=== PATIENT | male | born 1995 ===

== ENCOUNTER 2017-11-15 13:34 | Observation (INO) ==
--- NOTE | 2017-11-15 14:57 | General Surg History&Physical ---
<Peace Delgado - Last Filed: 11/15/17 15:29> Date of Encounter: 11/15/17 Time of Encounter: 15:05 Assessment and Plan (1) Acute appendicitis Current Visit: Yes Status: Acute The assessment and plan as outlined above was discussed with the patient and/or family members who expressed understanding and agreement. All questions were answered. Imaging per review of [facility] to attending surgeon, and exam is consistent with acute appendicitis. We will plan for surgical intervention in the next 24-48 hours. Recommendations, risks, and benefits have been reviewed with the patient and he is agreeable to proceed. A signed consent is placed on the hard chart. Per record review at [facility], he did not have antibiotics administered during his admission there. He did complete laboratory studies which noted a white blood cell count at 17, without bandemia, normal hemoglobin, unremarkable be MP , unremarkable LFT and mildly elevated bilirubin at 1.8. His CT is reviewed and notes with contrast 1 cm caliber dilated appendix suspicious for acute appendicitis, there is no free air or free fluid noted. NPO IVF ATBX (mefoxin) supportive care and discomfort management GI and DVT prophylaxis IS EPCDs Qualifiers: Acute appendicitis type: unspecified acute appendicitis type Qualified Code (s): K35.80 - Unspecified acute appendicitis (2) ETOH abuse Current Visit: Yes Status: Acute The assessment and plan as outlined above was discussed with the patient and/or family members who expressed understanding and agreement. All questions were answered. CIWA protocols (3) Smoking history Current Visit: Yes Status: Acute The assessment and plan as outlined above was discussed with the patient and/or family members who expressed understanding and agreement. All questions were answered. Scheduled duonebs now in pre-op incentive spirometry scheduled duonebs postoperative encourage smoking cessation History of Present Illness Chief complaint: RLQ pain HPI: Mr. SHAH is a 22 year old male who presented to [facility] with complaints of RLQ pain. He was noted to have acute appendicitis per CT and patient did not want to remain at [facility]. He is transferred to [facility] for plans for laproscopic appendectomy with Dr. Dunbar. He reports no past medical history. He reports a surgical history of right inguinal hernia repair when he was a child. He reports a social history of smoking approximately one pack per day for 3 years and drinks approximately 10 beers per day. He states a history of right lower quadrant pain that has occurred intermittently over the last month but has been constant for the last 24 hours. It started and as stated in the right lower quadrant, is an 8 out of 10, sharp, aggravated by activity or movement or passing on the abdomen, no alleviating factors. He denies fever, chills, nausea, vomiting, urinary symptoms, changes in bowel habits, black, bloody, or tarry stool. Past Med Surg Social Fam HX - Past Medical History Source: patient Medical history: no medical history Psychiatric history: no psych history - Past Surgical History Surgical History: herniorrhaphy - Social History Smoking Status: Current every day smoker Packs per day: One pack per day for 3 years Smokeless Tobacco Status: No Alcohol use: heavy (10 beers daily) Drug use: none Occupational status: employed Current living situation: Home - Independent Activity Level: Independent ambulation Recent Out of Country Travel Within the Last 8 Weeks: No Exposure or Possible Exposure to Illness During Travel: No Review of Systems All systems PM: reviewed and no additional remarkable complaints except as stated All systems PM: The remainder of the systems were reviewed and are negative General Surgery Exam VITAL SIGNS: Reviewed. See [facility] GENERAL: In no apparent distress. HEENT: Normocephalic, atraumatic, pupils are equal and reactive, extraocular motions intact, oropharynx is pink and moist, there is no neck adenopathy or JVD noted. CHEST/RESPIRATORY: The thorax is free from signs of trauma. Lung sounds: clear to auscultation, normal respiratory effort CARDIAC: Regular rate and rhythm. Normal S1 and S2, without murmurs, gallops, or rubs. VASCULAR: No Edema. 2+ peripheral pulses. ABDOMEN: soft, right lower quadrant tenderness, positive McBurney's point, negative obturator, negative so asked, and negative peritoneal MUSCULOSKELETAL: Good range of motion of all major joints. Extremities without clubbing, cyanosis or edema. NEUROLOGIC EXAM: Alert and oriented x 3. Speech normal. Follows commands. PSYCHIATRIC: Mood normal. SKIN: No rash or lesions. Results - Labs All other labs normal. <Candi Dunbar - Last Filed: 11/15/17 16:42> Date of Encounter: 11/15/17 Assessment and Plan (1) Acute appendicitis Current Visit: Yes Status: Acute The assessment and plan as outlined above was discussed with the patient and/or family members who expressed understanding and agreement. All questions were answered. discussed CT report and images with patient he has acute appendicitis, will plan laparoscopic appendectomy, possible open, risks and benefit discussed and he wishes to proceed. npo, ivf hydration prn pain control antibiotics in OR Qualifiers: Acute appendicitis type: unspecified acute appendicitis type Qualified Code (s): K35.80 - Unspecified acute appendicitis (2) ETOH abuse Current Visit: Yes Status: Acute The assessment and plan as outlined above was discussed with the patient and/or family members who expressed understanding and agreement. All questions were answered. (3) Smoking history Current Visit: Yes Status: Acute The assessment and plan as outlined above was discussed with the patient and/or family members who expressed understanding and agreement. All questions were answered. History of Present Illness HPI: Mr. hSah is a 22 year old male with RLQ pain that began early this am. Pain progressed and he presented to [facility] ED. Ct scan was done showing early acute appendicitis. He denies nausea or emesis. Has had some diarrhea today. No fevers ,chills or night sweats. No dysuria. He asked to be transfered to [place] for care. Past Med Surg Social Fam HX - Past Medical History Source: patient Additional medical history: alcohol abuse - Past Surgical History Surgical History: herniorrhaphy (as a child) - Social History Alcohol use: heavy Drug use: none Occupational status: employed Current living situation: Home - Independent Activity Level: Independent ambulation - Family History Grandmother History Unknown: Yes Review of Systems All systems PM: reviewed and no additional remarkable complaints except as stated All systems PM: The remainder of the systems were reviewed and are negative General Surgery Exam Initial Vital Signs Resp Pulse Ox 16 99 11/15/17 15:45 11/15/17 15:45 - Eyes PERRL, normal ocular movement - ENT normal mucosa, normocephalic - Respiratory normal expansion, normal respiratory effort - Cardiovascular Cardiovascular exam: Present: RRR - Abdomen Abdomen general surgery: Present: soft, tender. Absent: tympanic, distended, guarding, rebound Abdominal Tenderness: Present: RLQ - Integumentary Integumentary general surgery: Present: warm and dry, no abnormal pigmentation. Absent: diaphoresis - Neurologic Present: CN 2-12 grossly intact - Musculoskeletal Present: normal posture - Psychiatric Psychiatric general surgery: Present: A&Ox3, speech is normal Results - Labs All other labs normal. - Imaging CT scan - abdomen: report reviewed CT scan - pelvis: report reviewed - Attending Attestation I have personally performed a face to face evaluation on this patient. I have reviewed and agree with the care plan. History and Exam by me shows:
[2017-11-15] MEDS ORDERED: 0.9 % Sodium Chloride 1,000 ML IVC SCH (15:00)
[2017-11-15] MEDS ORDERED: Naloxone 0.4 MG/ML INJ IVP PRN ×2 (15:00→18:18)
[2017-11-15] MEDS ORDERED: Ondansetron 4 MG/2 ML VIAL IVP PRN ×2 (15:00→18:18)
[2017-11-15] MEDS ORDERED: *HR* Promethazine 25 MG/ML VIAL IVP PRN ×2 (15:00→18:18)
[2017-11-15] MEDS ORDERED: cefOXitin 2,000 MG in Water for inj. (sterile) 20 ML 20 ML IVP STA (15:26)
[2017-11-15] MEDS ORDERED: Ipratropium/Albuterol Neb 3 ML IH STA (15:35)
[2017-11-15] MEDS ORDERED: *HR* LORazepam 2 MG/ML VIAL IVP PRN ×2 (15:35→18:18)
[2017-11-15] MEDS ORDERED: Albuterol 2.5 MG/3 ML NEBULIZER IH ONE (15:47)
--- NOTE | 2017-11-15 15:49 | Anesthesia Evaluation PreOp ---
Date of Encounter: 11/15/17 Time of Encounter: 15:45 - Past History Planned Operation: Lap Appendectomy Cardiac History: Denies any Significant Hx Pulmonary History: Smoker [employer]ENT History: Denies Any Significant HX Other Medical History: Denies Any Significant HX Anesthesia History: No Prior Anesthetic Complications Alcohol Use: heavy (10 beers daily) Drug use: none - Meds/Allergy Pre-op Review Medications Reviewed: Yes Allergies Reviewed: Yes Beta Blockers on Current Med List: No Anesthesia Exam O2 Sat Height 1.83 m Weight 80.966 kg O2 Sat by Pulse Oximetry 99 Vital Signs Resp Pulse Ox 16 99 11/15/17 15:45 11/15/17 15:45 Height: 6'0 Weight: 178 lbs NPO (# of Hours): MN Pain Scale: 0 - HEENT Pupil (Motor): Pupils equal, EOMI Mallampati: II Teeth: Normal Oral Opening: Greater than 3 - [employer]ENT LOC: Oriented [employer]ENT Motor: Normal RUE, Normal LUE, Normal RLE, Normal LLE, Normal Face [employer]ENT Sensory: Normal: RUE, LUE, RLE, LLE, Face - Cardiac Rhythm: Regular Murmur: None JVD: No Carotid Bruit: No - Pulmonary Breath Sounds: bilateral Clear Respiratory Effort: Symmetrical Anesthesia Assess/Plan ASA Score: 2, E Modified [place] Scale for Level of Consciousness: Cooperative, oriented, and tranquil Anesthetic Plan: General Monitoring Plan: Standard Monitors Recovery Plan: PACU (Discussed GA, agrees to proceed)
[2017-11-15] MEDS ORDERED: Acetaminophen IV 1,000 MG/100 ML INFUS..BTL ONE (15:50)
[2017-11-15] MEDS ORDERED: Acetaminophen IV 1,000 MG/100 ML INFUS..BTL IVPB SCH ×2 (16:00)
[2017-11-15] MEDS ORDERED: cefOXitin 2,000 MG in Water for inj. (sterile) 20 ML 20 ML IVP SCH (16:00)
[2017-11-15] MEDS ORDERED: Lidocaine -MPF 4% 5 ML AMPUL ONE (16:22)
[2017-11-15] MEDS ORDERED: *HR* Rocuronium Bromide 50 MG/5 ML VIAL ONE (16:22)
[2017-11-15] MEDS ORDERED: Dexamethasone 4 MG/ML VIAL ONE (16:22)
[2017-11-15] MEDS ORDERED: Ondansetron 4 MG/2 ML VIAL ONE (16:22)
[2017-11-15] MEDS ORDERED: *HR* Midazolam HCl 2 MG/2 ML VIAL ONE (16:22)
[2017-11-15] MEDS ORDERED: *HR* Propofol 200 MG/20 ML VIAL IVP ONE ×2 (16:22)
[2017-11-15] MEDS ORDERED: *HR* FentaNYL (PF) 100 MCG/2 ML VIAL ONE ×3 (16:22→16:33)
[2017-11-15] MEDS ORDERED: Lidocaine -MPF 2% 2 ML VIAL ONE (16:22)
[2017-11-15] MEDS ORDERED: Ondansetron 4 MG/2 ML VIAL IVP ONE (16:24)
[2017-11-15] MEDS ORDERED: *HR* HYDROmorphone (PF) 1 MG/ML SYRINGE IVP PRN (16:24)
[2017-11-15] MEDS ORDERED: *HR* Midazolam HCl 2 MG/2 ML VIAL IVP PRN (16:24)
[2017-11-15] MEDS ORDERED: *HR* OxyCODONE Immed Rel 5 MG TABLET PO PRN (16:24)
[2017-11-15] MEDS ORDERED: SUGAMMADEX SODIUM 500 MG/5 ML VIAL IV ONE (16:27)
[2017-11-15] MEDS ORDERED: Neostigmine Methylsulfate 3 MG/3 ML SYRINGE ONE (16:31)
--- NOTE | 2017-11-15 16:43 | Operative Note ---
Date of procedure: 11/15/17 Pre-op diagnosis: acute appendicitis Post-op diagnosis: same Procedure: Laparoscopic appendectomy Complications: none immediate Anesthesia: GETA, local Local Anesthetics: 0.5% Sensorcaine HCL SubQ (cc) Surgeon: Candi Dunbar Was there an ophthalmology assistant present: No Bag Inspector Other: Homer Zapien Estimated blood loss (cc): 5 Specimen: appendix Condition: stable Disposition: PACU Procedure in Detail: The patient was brought into the operating suite and placed supine on the operating table. Sign-in was performed and everyone was in agreement. Anesthesia was induced and patient was endotracheally intubated by anesthesia without incident. An OG tube was placed by anesthesia. The abdomen was prepped and draped in the usual sterile fashion. A timeout was performed and again everyone was in agreement. A supraumbilical incision was made through the skin and the subcutaneous tissue with an 11 blade. Towel clamps were placed on either side of the umbilicus for retraction. S-retractors were used to dissect down to the anterior abdominal wall linea alba fascia. A Veress needle was placed into this incision and a water drop test confirmed placement and the abdomen was insufflated. We then entered the abdomen with the 5 mm 0 degree laparoscope on a 5 mm X-milad trocar. The area under entry was visualized and there was no bleeding and no apparent bowel injury. We placed a suprapubic 5 mm port under direct visualization after first incising the skin with an 11 blade. The laparoscope was placed through this and we exchanged the supraumbilical port for a 12 mm port under direct visualization. We then placed another 5 mm port in the left lower quadrant position under direct visualization after first incising the skin with an 11 blade. The patient was placed in slight Trendelenburg left side down position. The cecum was located as was the appendix. The appendix was grasped and retracted anteriorly and caudally with a laparoscopic [place]. A [place] was used to dissect between the mesoappendix and the appendix at the base of the cecum. The mesoappendix was transected with a laparoscopic flex-ex ETS stapler using a white load. The appendix was transected at the base of the cecum with the same stapler utilizing a white load. The appendix was placed in a laparoscopic Endo Catch bag and removed via the supraumbilical incision site. Both staple lines were evaluated and there was no bleeding and both staple lines were intact. The area was irrigated with sterile saline which was then suctioned free from the abdomen. The insufflation was suctioned free from the abdomen and all trochars removed. We closed the abdominal wall at the supraumbilical incision site with an 0 Vicryl [id number] stitch. A 30 cc of 0.5% Marcaine was injected subcutaneously at the 3 port sites. The skin at the two 5 mm port sites was closed with 4-0 Monocryl interrupted subcuticular stitches. The skin at the supraumbilical incision site was closed with a 4-0 Monocryl running subcuticular stitch. Steri-Strips were applied to the wounds. The patient was extubated in the OR and tolerated the procedure well and was taken to PACU after all lap and instrument counts were correct at the end of the case.
[2017-11-15] MEDS: *HR* Promethazine 25 MG/ML VIAL IVP PRN ×2 (17:05→17:12)
--- NOTE | 2017-11-15 17:13 | Anesthesia Evaluation Post Op ---
Date of Encounter: 11/15/17 Time of Encounter: 17:25 - Vital Signs Vital Signs: Vital Signs/O2 Sat/Glucose, Most Current Temp Pulse Resp BP Pulse Ox 11/15/17 17:06 55 16 136/89 94 11/15/17 16:56 59 16 143/99 98 11/15/17 16:46 98.0 F 84 20 136/90 100 11/15/17 15:45 16 99 - Lungs Lungs: Clear Ascult./Percussion - Airway Airway: Non-obstructed - Cardiovascular Regular Rate - Mental Status Mental Status: Alert & Oriented, Answers Appropriately - Pain Pain Scale: 1 - Nausea Vomiting Nausea Vomiting: Not Present - Hydration Hydration: Ice chips - Discharge PostOp Status: Transfer Patient to floor
[2017-11-15] MEDS ORDERED: Ringers Solution, Lactated 1,000 ML ONE (17:20)
[2017-11-15] MEDS ORDERED: Thiamine (B-1) 100 MG, Folic Acid 1 MG, MVI, adult with vitamin K 10 ML in 0.9 % Sodi... IVPB SCH ×2 (18:00→19:30)
[2017-11-15] MEDS ORDERED: MORPHINE SUL Oral CONC 10 MG/0.5 ML ORAL.SYG PO PRN (18:18)
[2017-11-15] MEDS ORDERED: *HR* OxyCODONE/APAP 5/325 TABLET PO PRN (18:18)
[2017-11-15] MEDS: 0.9 % Sodium Chloride 1,000 ML IVC SCH (20:45)
[2017-11-16] MEDS: cefOXitin 1,000 MG in 0.9 % Sodium Chloride Mini Bag 100 ML IVPB SCH ×2 (00:01→08:45)
[2017-11-16 05:28] LABS: Basophils % 0.1 %; Hematocrit 41.5 % (37.5-50.1); Hemoglobin 14.2 g/dL (12.9-16.9); Immature Granulocytes % 0.4 % (0-4); Lymphocytes # 1.3 K/mcL (0.6-4.6); Lymphocytes % 11.5 %; Mean Corpuscular HGB Conc 34.2 g/dL (31.6-35.5); Mean Corpuscular Hemoglobin 31.8 pg (28.0-33.3); Mean Platelet Volume 11.7 fL (9.4-12.4); Monocytes # 0.6 K/mcL (0.0-1.3); Monocytes % 4.9 %; Neutrophils # 9.6 K/mcL (1.6-8.9); Platelet Count 186 K/mcL (140-400); Red Blood Count 4.46 M/mcL (4.19-5.50); Red Cell Distribution Width 13.2 % (11.5-14.5); Segmented Neutrophils % 83.1 %
[2017-11-16 05:41] LABS: BUN/Creatinine Ratio 7 (6-26); Blood Urea Nitrogen 5 mg/dL (6-20); Calcium 9.1 mg/dL (8.6-10.3); Carbon Dioxide 25 mEq/L (23-29); Chloride 106 mEq/L (98-107); Glucose 116 mg/dL (70-105); Osmolality,Calculated 284 (280-300); Potassium 3.8 mEq/L (3.5-5.1); Sodium 138 mEq/L (136-145); eGFR For Non-African Americans > 60 (> 60)
[2017-11-16] MEDS: 0.9 % Sodium Chloride 1,000 ML IVC SCH (06:52)
[2017-11-16 06:53] VITALS: BP 112/72
--- NOTE | 2017-11-16 07:55 | Discharge Summary ---
<BrianaBridgetteTri Ranulfo - Last Filed: 11/16/17 10:28> Orders not resulted at time of discharge: Pending orders 11/15/17 16:32 Surgical Pathology [PTH] Routine Date of Encounter: 11/16/17 - Discharge Diagnosis (1) Acute appendicitis Priority: Primary Status: Resolved Qualifiers: Acute appendicitis type: unspecified acute appendicitis type Qualified Code (s): K35.80 - Unspecified acute appendicitis General Surgery Exam Initial Vital Signs Resp Pulse Ox 16 99 11/15/17 15:45 11/15/17 15:45 - General physical appearance well developed, well nourished, no distress - Eyes PERRL, normal ocular movement - ENT normal mucosa, atraumatic, normocephalic - Neck trachea midline - Respiratory normal expansion, normal respiratory effort, clear to auscultation - Cardiovascular Cardiovascular exam: Present: RRR - Abdomen Abdomen general surgery: Present: bowel sounds present, soft, tender - Incision Incision: Present: clean and dry, intact - Integumentary Integumentary general surgery: Present: warm and dry - Neurologic Present: CN 2-12 grossly intact - Musculoskeletal Present: normal gait, normal posture - Psychiatric Psychiatric general surgery: Present: appropriate, oriented to person, oriented to place, oriented to time, speech is normal, memory intact - Hospital Course Hospital course: Mr. Shah is a 22 year old male - Time Spent with Patient Total time spent providing and/or coordinating discharge services: Less than 30 minutes - Discharge Medications Prescriptions: OxyCODONE/APAP 5/325 [Percocet 5/325 MG] 1 each PO Q4HR PRN 5 Days #20 tablet PRN Reason: Pain Docusate [Colace] 100 mg PO BID PRN #30 capsule PRN Reason: Constipation Ibuprofen [Ibu] 800 mg PO TID #50 tablet Home Medications: Docusate [Colace] 100 mg PO BID PRN #30 capsule 11/16/17 [Rx] Ibuprofen [Ibu] 800 mg PO TID #50 tablet 11/16/17 [Rx] OxyCODONE/APAP 5/325 [Percocet 5/325 MG] 1 each PO Q4HR PRN 5 Days #20 tablet [Rx] Allergies/Adverse Reactions: 3 Allergy/AdvReac Type Severity Reaction Status Date / Time No Known Allergies Allergy Verified 11/15/17 16:46 Date of admission: 11/15/17 14:47 Primary care physician: PCP NONE Labs on day of discharge: Labs from last 24 hours 11/16/17 11/16/17 04:50 04:50 WBC 11.5 H RBC 4.46 Hgb 14.2 Hct 41.5 MCV 93.0 MCH 31.8 MCHC 34.2 RDW 13.2 Plt Count 186 MPV 11.7 Immature Gran % 0.4 Seg Neutrophils % 83.1 Lymphocytes % 11.5 Monocytes % 4.9 Eosinophils % 0.0 Basophils % 0.1 Neutrophils # 9.6 H Lymphocytes # 1.3 Monocytes # 0.6 Eosinophils # 0.0 Basophils # 0.0 Sodium 138 Potassium 3.8 Chloride 106 Carbon Dioxide 25 BUN 5 L Creatinine 0.75 Est GFR ( Amer) > 60 Est GFR (Non-Af Amer) > 60 BUN/Creatinine Ratio 7 Glucose 116 H Calculated Osmolality 284 Calcium 9.1 - Patient Status Disposition: Home, Self-Care Condition: Good Overall status at discharge: patient is progressing back to baseline - Discharge Instructions Instructions: Appendicitis (DC) Follow Up With: Tri Warren WELDING SPECIALIST [Advanced Practice Nurse] - 11/25/17 9:45 am (Surgery follow-up) Additional Instructions: No lifting more than 20 pounds for 2 weeks. Okay to take a shower in 24 hours. No tub baths or pools for 1 week. Okay to ride in the car wearing a seatbelt and climb steps. No driving until off narcotics for 24 hours and able to react safely Remove Steri-Strips in 1 week Do not take pain medicine/narcotics on an empty stomach it will likely cause nausea and possibly vomiting. If pain medication is too strong okay to break in half <Candi Dunbar - Last Filed: 11/16/17 13:06> Orders not resulted at time of discharge: Pending orders 11/15/17 16:32 Surgical Pathology [PTH] Routine Date of Encounter: 11/16/17 Time of Encounter: 09:40 - Discharge Diagnosis (1) ETOH abuse Priority: Secondary Status: Acute (2) Smoking history Priority: Secondary Status: Acute General Surgery Exam Initial Vital Signs Resp Pulse Ox 16 99 11/15/17 15:45 11/15/17 15:45 - General physical appearance well nourished, no distress - Eyes PERRL - ENT normal mucosa, normocephalic - Neck trachea midline - Respiratory normal expansion, clear to auscultation - Cardiovascular Cardiovascular exam: Present: RRR - Abdomen Abdomen general surgery: Present: bowel sounds present, soft, tender ( appropriate post op tenderness). Absent: guarding, rebound - Incision Incision: Present: clean and dry, intact - Integumentary Integumentary general surgery: Present: warm and dry - Neurologic Present: CN 2-12 grossly intact - Musculoskeletal Present: normal posture - Psychiatric Psychiatric general surgery: Present: A&Ox3, speech is normal - Hospital Course Hospital course: Mr. Shah is a 22 year old male transfered from [facility] for acute appendicitis. Patient underwent an uncomplicated laparoscopic appendectomy. Post op tolerated diet, pain controlled with po medication. He was discharged home in stable condition. - Time Spent with Patient Total time spent providing and/or coordinating discharge services: Less than 30 minutes Date of admission: 11/15/17 14:47 Primary care physician: PCP NONE Discharging clinician: Candi Dunbar Anticipated date of discharge: 11/16/17 Labs on day of discharge: Labs from last 24 hours 11/16/17 11/16/17 04:50 04:50 WBC 11.5 H RBC 4.46 Hgb 14.2 Hct 41.5 MCV 93.0 MCH 31.8 MCHC 34.2 RDW 13.2 Plt Count 186 MPV 11.7 Immature Gran % 0.4 Seg Neutrophils % 83.1 Lymphocytes % 11.5 Monocytes % 4.9 Eosinophils % 0.0 Basophils % 0.1 Neutrophils # 9.6 H Lymphocytes # 1.3 Monocytes # 0.6 Eosinophils # 0.0 Basophils # 0.0 Sodium 138 Potassium 3.8 Chloride 106 Carbon Dioxide 25 BUN 5 L Creatinine 0.75 Est GFR ( Amer) > 60 Est GFR (Non-Af Amer) > 60 BUN/Creatinine Ratio 7 Glucose 116 H Calculated Osmolality 284 Calcium 9.1 - Patient Status Overall status at discharge: patient is progressing back to baseline - Diet and Activity Activity: increase activity as tolerated Diet: advance to your usual diet - Attending Attestation I examined this patient and my medical decision-making was reviewed with the Resident Physician. I agree with the documented findings, disposition and treatment plan as described except to the extent set forth below.
[2017-11-16] MEDS ORDERED: Pantoprazole 40 MG VIAL IVP SCH ×2 (09:00)
== END 2017-11-16 12:34 | disposition home or self-care (01) ==
LOC: 3ANU
PROVIDERS: ADMIT Surgery; ATTEND Surgery